=== PATIENT | male | born 1985 | race Caucasian/White ===

== ENCOUNTER 2016-09-02 17:10 | Emergency (ER) | payer MEDICARE | END 2016-09-02 18:59 | disposition home or self-care (01) | LOC: ER 17:10 | DX: M51.26 Other intervertebral disc displacement, lumbar region (principal); M48.06 Spinal stenosis, lumbar region; M79.1 Myalgia; F17.210 Nicotine dependence, cigarettes, uncomplicated; Z88.0 Allergy status to penicillin | CPT/HCPCS: 71250; 72128; 72131; 73502; 80307; 96372; 99284; 99284-25 ==